=== PATIENT | male | born 1995 | race Caucasian/White ===

== ENCOUNTER 2017-10-01 02:27 | Emergency (ER) | payer BC ==
[~2017-10-01] VITALS: Ht 172.7 cm; Wt 68.9 kg
[2017-10-01 02:32] VITALS: Ht 172.7 cm; Wt 68.9 kg
[2017-10-01 03:47] VITALS: BP 135/77
== END 2017-10-01 03:47 | disposition home or self-care (01) ==
LOC: ED 02:27
DX: K21.9 Gastro-esophageal reflux disease without esophagitis (principal)